=== PATIENT | female | born 1945 | race Caucasian/White ===

== ENCOUNTER 2018-12-08 08:40 | Day surgery (SDC) | payer OTHER ==
[~2018-12-08 08:40] MED LIST: AMILODIPINE PO; CLOPIDOGREL PO; COZAAR100 MG PO; CYMBALTA60 MG PO; FORTAMET1000 MG PO; JARDIANCE10 MG PO; LANTUS; SYNTHROID125 MCG PO; [UNRECOGNIZED DRUG - OTHER] PO; [UNRECOGNIZED DRUG - OTHER] PO
== END 2018-12-08 16:55 | disposition home or self-care (01) ==
LOC: CIR.AMB 08:40
DX: N95.0 Postmenopausal bleeding (principal)

== ENCOUNTER 2019-01-03 14:35 | Outpatient (CLI) | payer OTHER | END 2019-01-03 14:38 | disposition home or self-care (01) | LOC: TOM 14:35 | DX: D07.0 Carcinoma in situ of endometrium (principal) ==

== ENCOUNTER 2019-02-02 13:45 | Inpatient (IN) | payer OTHER ==
[~2019-02-02] VITALS: Ht 160 cm; Wt 68.0 kg
[2019-02-02] MEDS ORDERED: ZIAC PO (14:42)
[2019-02-02] MEDS ORDERED: FORTAMET1000 MG PO (14:43)
[2019-02-02] MEDS ORDERED: LANTUS (14:43)
[2019-02-02] MEDS ORDERED: JARDIANCE PO (14:44)
[2019-02-07] MEDS ORDERED: NORVASC5 MG PO (08:06)
[2019-02-07] MEDS ORDERED: ATORVASTATIN CA40 MG PO (08:08)
[2019-02-07] MEDS ORDERED: LANSOPRAZOLE30 MG PO (08:08)
[2019-02-07] MEDS ORDERED: EZETIMIBE10 MG PO (08:09)
[2019-02-07] MEDS ORDERED: CLOPIDOGREL BIS75 MG PO (08:10)
[2019-02-07] MEDS ORDERED: BISOPROLOL FUMAR5 MG PO (08:12)
== END 2019-02-09 09:40 | disposition home or self-care (01) | DRG 734 ==
LOC: O/R 02-07 06:21 → OB/GYN 02-07 06:21
PROVIDERS: ADMIT Obstetrics & Gynecology Gynecologic Oncology
PROC: 0UT90ZZ Resection of Uterus, Open Approach (ICD-10-PCS; 2019-02-07)
PROC: 0UT70ZZ Resection of Bilateral Fallopian Tubes, Open Approach (ICD-10-PCS; 2019-02-07)
PROC: 0UT20ZZ Resection of Bilateral Ovaries, Open Approach (ICD-10-PCS; 2019-02-07)
PROC: 07TC0ZZ Resection of Pelvis Lymphatic, Open Approach (ICD-10-PCS; principal; 2019-02-07 07:00)
PROC: 30233N1 Transfusion of Nonautologous Red Blood Cells into Peripheral Vein, Percutaneous Approach (ICD-10-PCS; 2019-02-08)
DX: C54.1 Malignant neoplasm of endometrium (principal); D62 Acute posthemorrhagic anemia; N83.312 Acquired atrophy of left ovary; N83.311 Acquired atrophy of right ovary; I10 Essential (primary) hypertension; E11.9 Type 2 diabetes mellitus without complications; Z79.4 Long term (current) use of insulin